=== PATIENT | male | born 2000 | race Caucasian/White ===

== ENCOUNTER 2023-05-17 20:05 | Emergency (ER) | payer OTHER ==
[~2023-05-17] VITALS: Ht 172.7 cm; Wt 72.6 kg
[2023-05-17 20:07] VITALS: BP 141/84; PULSE 111; RESP 16; TEMP 97.7; O2SAT 95
== END 2023-05-17 21:05 ==
LOC: MED 20:05
DX: Z02.89 Encounter for other administrative examinations (principal); V43.52XA Car driver injured in collision with other type car in traffic accident, initial encounter; Y93.89 Activity, other specified; Y92.410 Unspecified street and highway as the place of occurrence of the external cause; Y99.8 Other external cause status
CPT/HCPCS: 99283